=== PATIENT | male | born 1955 ===

== ENCOUNTER 2019-05-17 13:08 | Inpatient (IN) ==
[2019-05-17] MEDS ORDERED: ACETAMINOPHEN 325 MG TABLET PO PRN (17:01)
[2019-05-17] MEDS ORDERED: ONDANSETRON 4 MG/2 ML VIAL IV PRN (17:01)
[2019-05-17] MEDS ORDERED: hydrALAZINE 20 MG/1 ML VIAL IV PRN (17:12)
[2019-05-17] MEDS: CARVEDILOL 25 MG TABLET PO SCH ×2 (17:28→20:13)
[2019-05-17 17:48] LABS: Basophils % 0.3 % (0.0-0.8); Eosinophils # 0.4 10*3/uL (0.0-0.87); Eosinophils % 12.4 % (0.00-10.9); Hemoglobin 11.8 GM/DL (14.0-18.0); Immature Granulocytes % 0.3 %; Immature Granulocytes Absolute 0.01 #; Lymphocytes # 0.4 10*3/uL (1.4-4.0); Lymphocytes % 12.4 % (21.2-54.2); Mean Corpuscular HGB Conc 32.8 GM/DL (32-36); Mean Corpuscular Volume 101.1 FL (87-102); Mean Platelet Volume 11.3 FL (9.6-12.0); Monocytes % 10.1 % (1.7-12.7); Neutrophils % 64.5 % (38.7-73.9); Platelet Count 105 T/CUMM (130-400); Red Blood Count 3.56 MC/CUMM (3.8-5.5); Red Cell Distribution Width 15.8 % (9.3-17.3); White Blood Count 3.5 T/CUMM (4-12)
[2019-05-17 18:01] LABS: Calcium 9.1 MG/DL (8.5-10.1)
[2019-05-17 18:12] LABS: Eosinophils 9 % (0-10); Lymphocytes 13 % (20-55); Segmented Neutrophils 70 % (50-85); Total Cells Counted 100
[2019-05-17 18:13] LABS: Anisocytosis 2+; Burr Cells Slight; Macrocytosis 2+; Microcytosis Slight; Poikilocytosis 1+
[2019-05-17 18:14] LABS: Atypical Lymphocytes Few; Elliptocytes Few; Platelet Estimate Decreased
[2019-05-17] MEDS: HYDROCORTISONE 1% CREAM 28 GM TUBE TOP SCH (20:20)
[2019-05-18 04:37] LABS: Basophils % 0.3 % (0.0-0.8); Eosinophils # 0.7 10*3/uL (0.0-0.87); Eosinophils % 17.7 % (0.00-10.9); Hematocrit 30.5 VOL% (42.0-52.0); Hemoglobin 9.9 GM/DL (14.0-18.0); Immature Granulocytes % 0.3 %; Immature Granulocytes Absolute 0.01 #; Lymphocytes # 0.5 10*3/uL (1.4-4.0); Mean Corpuscular HGB Conc 32.5 GM/DL (32-36); Mean Corpuscular Volume 98.4 FL (87-102); Mean Platelet Volume 11.5 FL (9.6-12.0); Monocytes % 11.5 % (1.7-12.7); Neutrophils % 58.2 % (38.7-73.9); Red Cell Distribution Width 15.6 % (9.3-17.3); White Blood Count 3.8 T/CUMM (4-12)
[2019-05-18 04:43] LABS: Platelet Count 81 T/CUMM (130-400)
[2019-05-18 05:04] LABS: Calcium 8.3 MG/DL (8.5-10.1); Osmolality,Calculated 289.1 MOS/KG (273-304); Risk Ratio 1.48; Thyroid Stimulating Hormone 3.7 uIU/ml (0.358-3.74); VLDL CHOLESTEROL 10.6 MG/DL
[2019-05-18 05:07] LABS: Eosinophils 22 % (0-10); Hypochromasia 1+; Lymphocytes 10 % (20-55); Ovalocytes Slight; Platelet Estimate Decreased; Segmented Neutrophils 65 % (50-85); Total Cells Counted 100
[2019-05-18 05:08] LABS: Microcytosis Slight
[2019-05-18] MEDS: CALCIUM ACETATE 667 MG CAPSULE PO SCH ×3 (08:18→17:47)
[2019-05-18] MEDS: ASPIRIN EC 81 MG TABLET PO SCH (08:23)
[2019-05-18] MEDS: CINACALCET 30 MG TABLET PO SCH (08:24)
[2019-05-18] MEDS: CLOPIDOGREL 75 MG TABLET PO SCH (08:25)
[2019-05-18] MEDS: amLODIPine 10 MG TABLET PO SCH (08:25)
[2019-05-18] MEDS: PANTOPRAZOLE 40 MG TABLET PO SCH (08:25)
[2019-05-18] MEDS: LOSARTAN 50 MG TABLET PO SCH (08:25)
[2019-05-18] MEDS: CARVEDILOL 25 MG TABLET PO SCH ×2 (08:25→21:17)
[2019-05-18] MEDS: HYDROCORTISONE 1% CREAM 28 GM TUBE TOP SCH ×3 (08:26→21:17)
[2019-05-18] MEDS ORDERED: EPOETIN ALFA 2,000 UNIT/1 ML VIAL IV PRN (09:09)
[2019-05-18 10:17] LABS: Hepatitis B Core IgM Quant 0.19 Index; Hepatitis B Surface Ag Quant < 0.10 Index; Hepatitis B Surface Ag Result Negative (Negative); Hepatitis C Virus Ab Quant 0.12 Index; Hepatitis C Virus Ab Result Negative (Negative)
[2019-05-18 17:26] LABS: Troponin I 0.052 NG/ML (0.00-0.045)
[2019-05-18 20:08] LABS: Troponin I 0.051 NG/ML (0.00-0.045)
[2019-05-19 05:07] LABS: Basophils % 0.3 % (0.0-0.8); Eosinophils # 0.6 10*3/uL (0.0-0.87); Eosinophils % 15.5 % (0.00-10.9); Hematocrit 29.6 VOL% (42.0-52.0); Hemoglobin 9.7 GM/DL (14.0-18.0); Immature Granulocytes % 0.3 %; Immature Granulocytes Absolute 0.01 #; Lymphocytes # 0.5 10*3/uL (1.4-4.0); Mean Corpuscular HGB Conc 32.8 GM/DL (32-36); Mean Corpuscular Volume 98.3 FL (87-102); Mean Platelet Volume 11.3 FL (9.6-12.0); Monocytes % 10.3 % (1.7-12.7); Neutrophils % 60.6 % (38.7-73.9); Platelet Count 77 T/CUMM (130-400); Red Blood Count 3.01 MC/CUMM (3.8-5.5); Red Cell Distribution Width 15.4 % (9.3-17.3); White Blood Count 3.7 T/CUMM (4-12)
[2019-05-19 05:22] LABS: Calcium 8.3 MG/DL (8.5-10.1); Osmolality,Calculated 285.3 MOS/KG (273-304)
[2019-05-19 05:27] LABS: Calcium 8.3 MG/DL (8.5-10.1); Osmolality,Calculated 282.4 MOS/KG (273-304)
[2019-05-19 05:37] LABS: Eosinophils 14 % (0-10); Hypochromasia 1+; Lymphocytes 8 % (20-55); Microcytosis Slight; Ovalocytes Slight; Platelet Estimate Decreased; Segmented Neutrophils 74 % (50-85); Total Cells Counted 100
[2019-05-19 05:43] LABS: Risk Ratio 1.43
[2019-05-19 05:45] LABS: % Iron Saturation 23.1 % (18-50)
[2019-05-19 07:57] VITALS: BP 157/73
[2019-05-19] MEDS: CALCIUM ACETATE 667 MG CAPSULE PO SCH ×2 (08:39→12:40)
[2019-05-19] MEDS: CLOPIDOGREL 75 MG TABLET PO SCH (08:40)
[2019-05-19] MEDS: amLODIPine 10 MG TABLET PO SCH (08:40)
[2019-05-19] MEDS: CINACALCET 30 MG TABLET PO SCH (08:40)
[2019-05-19] MEDS: ASPIRIN EC 81 MG TABLET PO SCH (08:40)
[2019-05-19] MEDS: LOSARTAN 50 MG TABLET PO SCH (08:41)
[2019-05-19] MEDS: PANTOPRAZOLE 40 MG TABLET PO SCH (08:41)
[2019-05-19] MEDS: CARVEDILOL 25 MG TABLET PO SCH (08:41)
[2019-05-19] MEDS: HYDROCORTISONE 1% CREAM 28 GM TUBE TOP SCH (08:48)
[2019-05-19] MEDS ORDERED: FERROUS SULFATE 325 MG TABLET PO SCH (09:30)
== END 2019-05-19 15:28 | disposition home or self-care (01) | DRG 291 ==
LOC: N.TELES
PROVIDERS: ADMIT Internal Medicine; ATTEND Internal Medicine

== ENCOUNTER 2020-02-16 10:50 | Inpatient (IN) ==
[2020-02-16 12:01] LABS: Basophils % 0.3 % (0.0-0.8); Eosinophils # 0.1 10*3/uL (0.0-0.87); Hematocrit 36.1 VOL% (42.0-52.0); Hemoglobin 11.5 GM/DL (14.0-18.0); Immature Granulocytes % 1.5 %; Immature Granulocytes Absolute 0.09 #; Lymphocytes # 0.4 10*3/uL (1.4-4.0); Lymphocytes % 6.5 % (21.2-54.2); Mean Corpuscular HGB Conc 31.9 GM/DL (32-36); Mean Corpuscular Volume 104.6 FL (87-102); Mean Platelet Volume 11.5 FL (9.6-12.0); Monocytes % 14.4 % (1.7-12.7); Neutrophils % 76.3 % (38.7-73.9); Platelet Count 94 T/CUMM (130-400); Red Blood Count 3.45 MC/CUMM (3.8-5.5); Red Cell Distribution Width 15.2 % (9.3-17.3)
[2020-02-16 12:09] LABS: INR 1.1
[2020-02-16 12:24] LABS: Albumin 3.3 G/DL (3.4-5.0); Bilirubin,Total 0.5 MG/DL (0.2-1.0); Calcium 10.3 MG/DL (8.5-10.1); Osmolality,Calculated 285.5 MOS/KG (273-304); Total Protein 7.2 G/DL (6.4-8.3)
[2020-02-16 12:35] LABS: Anisocytosis 2+; Platelet Estimate Decreased; Poikilocytosis 1+
[2020-02-16 12:36] LABS: Burr Cells 2+; Macrocytosis 1+; Polychromasia Slight
[2020-02-16] MEDS ORDERED: DEXTROSE 50% 25 GM/50 ML VIAL IV STA (13:25)
[2020-02-16] MEDS ORDERED: SODIUM BICARBONATE 10 MEQ/10 ML SYRINGE IV ONE (13:25)
[2020-02-16] MEDS ORDERED: CALCIUM CHLORIDE 1,000 MG/10 ML SYRINGE IV STA (13:28)
[2020-02-16] MEDS ORDERED: INSULIN REGULAR 100 UNIT/ML IV STA (13:31)
[2020-02-16] MEDS ORDERED: GLUCAGON 1 MG VIAL IM PRN (14:51)
[2020-02-16] MEDS ORDERED: ONDANSETRON 4 MG/2 ML VIAL IV PRN (14:51)
[2020-02-16] MEDS ORDERED: ACETAMINOPHEN 325 MG TABLET PO PRN (14:51)
[2020-02-16] MEDS ORDERED: DEXTROSE 50% 25 GM/50 ML VIAL IV PRN (14:51)
[2020-02-16] MEDS ORDERED: SODIUM POLYSTYRENE SULFATE 15 GM/60 ML BOTTLE PO STA (14:57)
[2020-02-16] MEDS ORDERED: ENOXAPARIN 40 MG/0.4 ML SYRINGE SUBCUT SCH (15:00)
[2020-02-16] MEDS: HEPARIN 5,000 UNIT/1 ML VIAL SUBCUT SCH ×2 (16:46→23:43)
[2020-02-16] MEDS: SODIUM BICARBONATE 650 MG TABLET PO SCH ×2 (18:05→21:28)
[2020-02-17 06:39] LABS: Basophils % 0.5 % (0.0-0.8); Eosinophils # 0.2 10*3/uL (0.0-0.87); Eosinophils % 4.2 % (0.00-10.9); Hematocrit 33.5 VOL% (42.0-52.0); Hemoglobin 11.1 GM/DL (14.0-18.0); Immature Granulocytes % 0.7 %; Immature Granulocytes Absolute 0.03 #; Lymphocytes # 0.3 10*3/uL (1.4-4.0); Lymphocytes % 7.8 % (21.2-54.2); Mean Corpuscular HGB Conc 33.1 GM/DL (32-36); Mean Corpuscular Volume 101.5 FL (87-102); Mean Platelet Volume 10.6 FL (9.6-12.0); NRBC # 0.02 10*3/uL; Neutrophils % 71.8 % (38.7-73.9); Red Cell Distribution Width 15.1 % (9.3-17.3); White Blood Count 4.1 T/CUMM (4-12)
[2020-02-17 06:46] LABS: Platelet Count 97 T/CUMM (130-400)
[2020-02-17 06:49] LABS: Calcium 9.7 MG/DL (8.5-10.1); Osmolality,Calculated 276.2 MOS/KG (273-304)
[2020-02-17 07:09] LABS: Ferritin 1652.7 ng/ml (26-388)
[2020-02-17 08:08] LABS: Anisocytosis 1+; Burr Cells Few; Macrocytosis 1+; Platelet Estimate Decreased; Poikilocytosis 1+
[2020-02-17] MEDS ORDERED: hydrALAZINE 20 MG/1 ML VIAL IV PRN (08:16)
[2020-02-17] MEDS: HEPARIN 5,000 UNIT/1 ML VIAL SUBCUT SCH ×2 (08:44→15:59)
[2020-02-17] MEDS: LOSARTAN 50 MG TABLET PO SCH (08:45)
[2020-02-17] MEDS: amLODIPine 10 MG TABLET PO SCH (08:45)
[2020-02-17] MEDS: ASPIRIN EC 81 MG TABLET PO SCH (08:45)
[2020-02-17] MEDS: CLOPIDOGREL 75 MG TABLET PO SCH (08:46)
[2020-02-17] MEDS: carvediloL 25 MG TABLET PO SCH ×2 (08:46→21:09)
[2020-02-17] MEDS: PANTOPRAZOLE 40 MG TABLET PO SCH (08:46)
[2020-02-17] MEDS: SODIUM BICARBONATE 650 MG TABLET PO SCH (08:46)
[2020-02-17] MEDS ORDERED: CINACALCET 30 MG TABLET PO SCH (09:00)
[2020-02-17] MEDS: HYDROCORTISONE 1% CREAM 28 GM TUBE TOP SCH ×2 (10:37→21:10)
[2020-02-17] MEDS ORDERED: CALCIUM ACETATE 667 MG CAPSULE PO SCH (12:00)
[2020-02-18] MEDS: HEPARIN 5,000 UNIT/1 ML VIAL SUBCUT SCH ×4 (00:42→17:50)
[2020-02-18 06:35] LABS: Ferritin 1173.5 ng/ml (26-388)
[2020-02-18] MEDS ORDERED: LIDOCAINE/PRILOCAINE CREAM 5 GM TUBE TOP ONE (08:07)
[2020-02-18] MEDS: amLODIPine 10 MG TABLET PO SCH (08:31)
[2020-02-18] MEDS: PANTOPRAZOLE 40 MG TABLET PO SCH (08:31)
[2020-02-18] MEDS: LOSARTAN 50 MG TABLET PO SCH (08:31)
[2020-02-18] MEDS: ASPIRIN EC 81 MG TABLET PO SCH (08:31)
[2020-02-18] MEDS: carvediloL 25 MG TABLET PO SCH ×2 (08:31→21:35)
[2020-02-18] MEDS: CLOPIDOGREL 75 MG TABLET PO SCH (08:31)
[2020-02-18] MEDS: HYDROCORTISONE 1% CREAM 28 GM TUBE TOP SCH ×2 (08:36→21:35)
[2020-02-19] MEDS: HEPARIN 5,000 UNIT/1 ML VIAL SUBCUT SCH ×3 (00:35→16:41)
[2020-02-19] MEDS: PANTOPRAZOLE 40 MG TABLET PO SCH (08:16)
[2020-02-19] MEDS: amLODIPine 10 MG TABLET PO SCH (08:17)
[2020-02-19] MEDS: CLOPIDOGREL 75 MG TABLET PO SCH (08:17)
[2020-02-19] MEDS: carvediloL 25 MG TABLET PO SCH ×2 (08:17→21:07)
[2020-02-19] MEDS: ASPIRIN EC 81 MG TABLET PO SCH (08:17)
[2020-02-19] MEDS: LOSARTAN 50 MG TABLET PO SCH (08:17)
[2020-02-19] MEDS: HYDROCORTISONE 1% CREAM 28 GM TUBE TOP SCH ×2 (08:17→21:08)
[2020-02-19] MEDS ORDERED: IRON SUCROSE 100 MG/5 ML VIAL IV SCH (12:00)
[2020-02-20] MEDS: HEPARIN 5,000 UNIT/1 ML VIAL SUBCUT SCH ×2 (00:58→10:17)
[2020-02-20] MEDS ORDERED: FERROUS SULFATE 325 MG TABLET PO SCH (09:00)
[2020-02-20] MEDS: LOSARTAN 50 MG TABLET PO SCH (10:17)
[2020-02-20] MEDS: amLODIPine 10 MG TABLET PO SCH (10:17)
[2020-02-20] MEDS: HYDROCORTISONE 1% CREAM 28 GM TUBE TOP SCH (10:17)
[2020-02-20] MEDS: ASPIRIN EC 81 MG TABLET PO SCH (10:17)
[2020-02-20] MEDS: carvediloL 25 MG TABLET PO SCH (10:17)
[2020-02-20] MEDS: CLOPIDOGREL 75 MG TABLET PO SCH (10:17)
[2020-02-20] MEDS: PANTOPRAZOLE 40 MG TABLET PO SCH (10:18)
[2020-02-20 11:47] VITALS: BP 179/75
== END 2020-02-20 12:40 | disposition home or self-care (01) | DRG 291 ==
LOC: EDUNIT# → N.ED 10:50 → N.EDINP 14:51 → SUATTDRO 14:51 → N.2E 15:25
PROVIDERS: ADMIT Hospitalist; ATTEND Internal Medicine